=== PATIENT | male | born 1955 | race African-American/Black ===

== ENCOUNTER 2024-07-14 16:44 | Inpatient (IN) | payer OTHER ==
[2024-07-14 18:21] VITALS: BMI 17.6
[2024-07-14] MEDS ORDERED: BISMUTH SUBSALICYLATE 524 MG/30 ML PO PRN (19:26)
[2024-07-14] MEDS ORDERED: ONDANSETRON *ODT* 4 MG TABLET SL PRN (19:26)
[2024-07-14] MEDS ORDERED: LOPERAMIDE HCL 2 MG CAPSULE PO PRN (19:26)
[2024-07-14] MEDS ORDERED: NALOXONE (NYS OPIOID OVERDOSE PROGRAM) 4 MG/0.1 ML SPRAY NS PRN (19:26)
[2024-07-14] MEDS ORDERED: MAGNESIUM HYDROX 2400MG/30ML ORAL SUSPENSION 30 ML CUP PO PRN (19:26)
[2024-07-14] MEDS ORDERED: ACETAMINOPHEN 325 MG TABLET (FP) PO PRN (19:26)
[2024-07-14] MEDS ORDERED: BENZOCAINE/MENTHOL (CHLORASEPTIC ) LOZENGE MM PRN (19:26)
[2024-07-14] MEDS ORDERED: NICOTINE POLACRILEX 2 MG GUM BUC PRN (19:26)
[2024-07-14] MEDS ORDERED: BENZONATATE 200 MG CAPSULE PO PRN (19:26)
[2024-07-14] MEDS ORDERED: IBUPROFEN 400 MG TABLET (FP) PO PRN (19:26)
[2024-07-14] MEDS ORDERED: MAG HYDROX/AL HYDROX/SIMETH 30 ML UNIT-DOSE CUP PO PRN (19:26)
[2024-07-14] MEDS ORDERED: guaiFENesin 600 MG TABLET.ER (FP) PO PRN (19:26)
[2024-07-14] MEDS ORDERED: NALOXONE (NARCAN) HCL 4 MG/0.1 ML SPRAY NS PRN (19:26)
[2024-07-14] MEDS ORDERED: POLYETHYLENE GLYCOL (HEALTHYLAX) 3350 17 GM PACKET PO PRN (19:26)
[2024-07-14] MEDS: IBUPROFEN 600 MG TABLET (FP) PO PRN (22:38)
[2024-07-14] MEDS: THIAMINE 100 MG TABLET PO SCH (22:38)
[2024-07-14] MEDS: MELATONIN 5 MG TABLETS PO SCH (22:38)
[2024-07-15] MEDS: PRENATAL VITAMINS W/ FOLIC ACID TABLET (FP) PO SCH (10:21)
[2024-07-15] MEDS: FINASTERIDE 5 MG TABLET (FP) PO SCH (14:12)
[2024-07-15 14:50] LABS: HEMATOCRIT 37.3 % (35.4-49); HEMOGLOBIN 12.8 GM/dL (11.7-16.9); MCH 35.9 pg (25.7-33.7); MCHC 34.2 g/dl (32.0-35.9); MEAN CELL VOLUME 105.2 fl (80-96); MEAN PLT VOLUME 7.1 fl (7.5-11.1); PLATELET COUNT 283 10^3/uL (134-434); RBC 3.55 M/mm3 (4.00-5.60); RDW 13.4 % (11.9-15.9); WHITE BLOOD COUNT 3.6 K/mm3 (4.0-10.0)
[2024-07-15] MEDS: BICTEGRAV/EMTRICIT/TENOFOV (BIKTARVY) 50-200-25 MG TABLET PO SCH (15:00)
[2024-07-15 15:01] LABS: POTASSIUM 4.2 mmol/L (3.5-5.1)
[2024-07-15 15:03] LABS: ALBUMIN 3.9 g/dl (3.4-5.0); CALCIUM 9.4 mg/dL (8.5-10.1)
[2024-07-15 15:04] LABS: BLOOD UREA NITROGEN 23.2 mg/dL (7-18)
[2024-07-15 15:07] LABS: CREATININE 1.1 mg/dL (0.55-1.3)
[2024-07-15 15:08] LABS: BILIRUBIN,TOTAL 0.6 mg/dL (0.2-1); TOT PROT 7.9 g/dl (6.4-8.2)
[2024-07-15] MEDS: TAMSULOSIN HCL 0.4 MG CAP PO SCH (17:35)
[2024-07-15] MEDS: BACLOFEN 10 MG TABLET (FP) PO PRN (21:44)
[2024-07-15] MEDS: hydrOXYzine PAMOATE 25 MG CAPSULE (FP) PO PRN (21:44)
[2024-07-17 13:47] VITALS: BP 107/70; PULSE 90; RESP 16; TEMP 98.4
== END 2024-07-17 13:50 | disposition other institution (70) | DRG 897 ==
LOC: YASAS 16:44 → Y3N 21:48
PROVIDERS: ADMIT Allergy & Immunology; ATTEND Surgery
PROC: HZ2ZZZZ Detoxification Services for Substance Abuse Treatment (ICD-10-PCS; principal; 2024-07-14)
DX: F10.20 Alcohol dependence, uncomplicated (principal); F14.20 Cocaine dependence, uncomplicated; F12.20 Cannabis dependence, uncomplicated; Z21 Asymptomatic human immunodeficiency virus [HIV] infection status; I25.10 Atherosclerotic heart disease of native coronary artery without angina pectoris; I10 Essential (primary) hypertension; I25.2 Old myocardial infarction; K21.9 Gastro-esophageal reflux disease without esophagitis; M54.50 Low back pain, unspecified; G89.29 Other chronic pain; N40.0 Benign prostatic hyperplasia without lower urinary tract symptoms; Z95.0 Presence of cardiac pacemaker; Z86.19 Personal history of other infectious and parasitic diseases; Z99.89 Dependence on other enabling machines and devices
CPT/HCPCS: 36415; 80053; 80305; 80307; 85027; 86780; 93005; 93010; J0475

== ENCOUNTER 2024-07-17 14:04 | Inpatient (IN) | payer OTHER ==
[2024-07-17] MEDS ORDERED: hydrOXYzine PAMOATE 25 MG CAPSULE (FP) PO PRN (16:30)
[2024-07-17] MEDS ORDERED: NICOTINE POLACRILEX 2 MG GUM BUC PRN (16:30)
[2024-07-17] MEDS ORDERED: guaiFENesin 600 MG TABLET.ER (FP) PO PRN (16:30)
[2024-07-17] MEDS ORDERED: MAGNESIUM HYDROX 2400MG/30ML ORAL SUSPENSION 30 ML CUP PO PRN (16:30)
[2024-07-17] MEDS ORDERED: BENZONATATE 200 MG CAPSULE PO PRN (16:30)
[2024-07-17] MEDS ORDERED: POLYETHYLENE GLYCOL (HEALTHYLAX) 3350 17 GM PACKET PO PRN (16:30)
[2024-07-17] MEDS ORDERED: LOPERAMIDE HCL 2 MG CAPSULE PO PRN (16:30)
[2024-07-17] MEDS ORDERED: METHOCARBAMOL 500 MG TABLET PO PRN (16:30)
[2024-07-17] MEDS ORDERED: BENZOCAINE/MENTHOL (CHLORASEPTIC ) LOZENGE MM PRN (16:30)
[2024-07-17] MEDS: THIAMINE 100 MG TABLET PO SCH (21:43)
[2024-07-17] MEDS: BACLOFEN 10 MG TABLET (FP) PO SCH (21:43)
[2024-07-17] MEDS: IBUPROFEN 600 MG TABLET (FP) PO PRN (21:45)
[2024-07-17] MEDS: MELATONIN 5 MG TABLETS PO SCH (21:46)
[2024-07-18] MEDS: NICOTINE 14 MG/24 HOURS TOPICAL PATCH TD SCH (05:40)
[2024-07-18] MEDS: PRENATAL VITAMINS W/ FOLIC ACID TABLET (FP) PO SCH (05:40)
[2024-07-18] MEDS: BICTEGRAV/EMTRICIT/TENOFOV (BIKTARVY) 50-200-25 MG TABLET PO SCH (07:12)
[2024-07-18] MEDS: FINASTERIDE 5 MG TABLET (FP) PO SCH (11:18)
[2024-07-18] MEDS: TAMSULOSIN HCL 0.4 MG CAP PO SCH (11:19)
[2024-07-18] MEDS: ACETAMINOPHEN 325 MG TABLET (FP) PO PRN (23:21)
[2024-07-22] MEDS: IBUPROFEN 400 MG TABLET (FP) PO PRN (21:10)
[2024-07-29 06:50] VITALS: RESP 16
[2024-07-29] MEDS: MAG HYDROX/AL HYDROX/SIMETH 30 ML UNIT-DOSE CUP PO PRN (09:49)
[2024-07-30] MEDS: BICTEGRAV/EMTRICIT/TENOFOV (BIKTARVY) 50-200-25 MG TABLET PO SCH (06:20)
[2024-08-02 13:12] LABS: URINE APPEARANCE CLEAR; URINE BILIRUBIN NEGATIVE (NEGATIVE); URINE COLOR YELLOW; URINE GLUCOSE (UA) NEGATIVE (NEGATIVE); URINE KETONE NEGATIVE (NEGATIVE); URINE LEUK ESTERASE NEGATIVE (NEGATIVE); URINE NITRITE NEGATIVE (NEGATIVE); URINE PROTEIN NEGATIVE (NEGATIVE); URINE UROBILINOGEN 0.2 mg/dL (0.2-1.0)
[2024-08-03 06:54] VITALS: TEMP 97.7
[2024-08-04 06:56] VITALS: BP 103/64; PULSE 75
== END 2024-08-04 09:50 | disposition home or self-care (01) | DRG 895 ==
LOC: YASAS 14:04 → Y3NR 14:06 → Y5N 07-21 11:26
PROVIDERS: ADMIT Psychiatry & Neurology Pain Medicine; ATTEND Psychiatry & Neurology Pain Medicine
PROC: HZ42ZZZ Group Counseling for Substance Abuse Treatment, Cognitive-Behavioral (ICD-10-PCS; principal; 2024-07-17)
DX: F10.20 Alcohol dependence, uncomplicated (principal); F14.20 Cocaine dependence, uncomplicated; F17.210 Nicotine dependence, cigarettes, uncomplicated; Z21 Asymptomatic human immunodeficiency virus [HIV] infection status; I25.10 Atherosclerotic heart disease of native coronary artery without angina pectoris; K21.9 Gastro-esophageal reflux disease without esophagitis; N40.0 Benign prostatic hyperplasia without lower urinary tract symptoms; Z95.0 Presence of cardiac pacemaker; Z99.89 Dependence on other enabling machines and devices
CPT/HCPCS: 71045-TC-FY; 80305; 81003; 87086; J0475

== ENCOUNTER 2024-11-19 12:10 | Inpatient (IN) | payer OTHER ==
[2024-11-19] MEDS ORDERED: ACETAMINOPHEN 325 MG TABLET (FP) PO PRN (12:45)
[2024-11-19] MEDS ORDERED: NICOTINE POLACRILEX 2 MG LOZENGE BC PRN (12:45)
[2024-11-19] MEDS ORDERED: POLYETHYLENE GLYCOL (HEALTHYLAX) 3350 17 GM PACKET PO PRN (12:45)
[2024-11-19] MEDS ORDERED: NALOXONE (NARCAN) HCL 4 MG/0.1 ML SPRAY NS PRN (12:45)
[2024-11-19] MEDS ORDERED: BENZONATATE 200 MG CAPSULE PO PRN (12:45)
[2024-11-19] MEDS ORDERED: MAG HYDROX/AL HYDROX/SIMETH 30 ML UNIT-DOSE CUP PO PRN (12:45)
[2024-11-19] MEDS ORDERED: guaiFENesin 600 MG TABLET.ER (FP) PO PRN (12:45)
[2024-11-19] MEDS ORDERED: LOPERAMIDE HCL 2 MG CAPSULE PO PRN (12:45)
[2024-11-19] MEDS ORDERED: NICOTINE POLACRILEX 2 MG GUM BUC PRN (12:45)
[2024-11-19 12:53] VITALS: BMI 18.5
[2024-11-19] MEDS: ASPIRIN COATED 81 MG TABLET.EC PO SCH (15:20)
[2024-11-19] MEDS: THIAMINE 100 MG TABLET PO SCH (22:18)
[2024-11-19] MEDS: MELATONIN 5 MG TABLETS PO SCH (22:18)
[2024-11-19] MEDS: IBUPROFEN 600 MG TABLET (FP) PO PRN (22:19)
[2024-11-20] MEDS: TAMSULOSIN HCL 0.4 MG CAP PO SCH (07:33)
[2024-11-20] MEDS: PRENATAL VITAMINS W/ FOLIC ACID TABLET (FP) PO SCH (09:17)
[2024-11-20] MEDS: BICTEGRAV/EMTRICIT/TENOFOV (BIKTARVY) 50-200-25 MG TABLET PO SCH (09:18)
[2024-11-20] MEDS: FINASTERIDE 5 MG TABLET (FP) PO SCH (09:19)
[2024-11-20 11:54] LABS: HEMATOCRIT 34.8 % (35.4-49); HEMOGLOBIN 11.4 GM/dL (11.7-16.9); MCHC 32.8 g/dl (32.0-35.9); MEAN CELL VOLUME 106.6 fl (80-96); MEAN PLT VOLUME 7.2 fl (7.5-11.1); PLATELET COUNT 247 10^3/uL (134-434); RBC 3.26 M/mm3 (4.00-5.60); RDW 13.3 % (11.9-15.9); WHITE BLOOD COUNT 3.7 K/mm3 (4.0-10.0)
[2024-11-20 11:59] LABS: POTASSIUM 4.2 mmol/L (3.5-5.1)
[2024-11-20 12:06] LABS: BLOOD UREA NITROGEN 21.4 mg/dL (7-18); CALCIUM 9.2 mg/dL (8.5-10.1)
[2024-11-20 12:10] LABS: CREATININE 1.1 mg/dL (0.55-1.3)
[2024-11-20 12:11] LABS: BILIRUBIN,TOTAL 0.5 mg/dL (0.2-1); TOT PROT 6.6 g/dl (6.4-8.2)
[2024-11-21] MEDS: NALTREXONE HCL 50 MG TABLET PO ONE (10:51)
[2024-11-21] MEDS: BACLOFEN 10 MG TABLET (FP) PO SCH (10:51)
[2024-11-21] MEDS: IBUPROFEN 400 MG TABLET (FP) PO PRN (21:06)
[2024-11-22] MEDS: NALTREXONE HCL 50 MG TABLET PO SCH (09:37)
[2024-11-24 10:33] LABS: INR 1.09 (0.83-1.09); PROTHROMBIN TIME (PATIENT) 11.9 SEC (9.7-13.0)
[2024-11-24 11:15] LABS: MAGNESIUM 2.1 mg/dL (1.8-2.4)
[2024-12-02] MEDS: MELATONIN 5 MG TABLETS PO SCH (21:13)
[2024-12-03] MEDS: BENZOCAINE/MENTHOL (CHLORASEPTIC ) LOZENGE MM PRN (20:11)
[2024-12-04] MEDS: MAGNESIUM HYDROX 2400MG/30ML ORAL SUSPENSION 30 ML CUP PO PRN (21:17)
[2024-12-08 23:09] VITALS: RESP 18
[2024-12-10 06:50] VITALS: TEMP 97.3
[2024-12-10 09:25] VITALS: BP 121/71; PULSE 74
== END 2024-12-10 10:55 | disposition home or self-care (01) | DRG 895 ==
LOC: YASAS 12:10 → Y3NR 13:44 → Y5N 11-20 14:55
PROVIDERS: ADMIT Psychiatry & Neurology Pain Medicine; ATTEND Psychiatry & Neurology Pain Medicine
PROC: HZ42ZZZ Group Counseling for Substance Abuse Treatment, Cognitive-Behavioral (ICD-10-PCS; principal; 2024-11-19)
DX: F10.20 Alcohol dependence, uncomplicated (principal); F14.20 Cocaine dependence, uncomplicated; F17.210 Nicotine dependence, cigarettes, uncomplicated; F32.A Depression, unspecified; G47.00 Insomnia, unspecified; I25.10 Atherosclerotic heart disease of native coronary artery without angina pectoris; I10 Essential (primary) hypertension; Z95.0 Presence of cardiac pacemaker; Z21 Asymptomatic human immunodeficiency virus [HIV] infection status; K21.9 Gastro-esophageal reflux disease without esophagitis; L85.3 Xerosis cutis; M54.50 Low back pain, unspecified; G89.29 Other chronic pain; N40.0 Benign prostatic hyperplasia without lower urinary tract symptoms; R76.11 Nonspecific reaction to tuberculin skin test without active tuberculosis; Z99.89 Dependence on other enabling machines and devices
CPT/HCPCS: 36415; 71046-TC-FY; 80053; 80305; 80307; 82140; 82607; 82652; 82746; 83735; 85027; 85610; 87811; J0475